=== PATIENT | male | born 1965 | race Caucasian/White ===

== ENCOUNTER 2018-08-12 18:58 | Inpatient (IN) | payer OTHER ==
[2018-08-12] MEDS ORDERED: ASPIRIN 81 MG CHEWABLE TAB PO ONE (19:20)
[2018-08-12] MEDS ORDERED: NS 1,000 ML IV ONE ×2 (19:20)
--- NOTE | 2018-08-12 19:20 | EDPHY ---
H & P Time Seen by Provider: 08/12/18 19:12 HPI/ROS: CHIEF COMPLAINT: Abnormal EKG HISTORY OF PRESENT ILLNESS: The patient is a 52-year-old male who went to the clinic today to be evaluated for right ear pain and insomnia. During the course of his workup he was noted to be minimally tachycardic and and EKG performed. This showed atrial fibrillation. Patient was sent to the emergency department for further evaluation. Patient has had no chest pain or shortness of breath. No palpitations. He has had increased fatigue recently. No recent illness. No fevers or chills. No cough. REVIEW OF SYSTEMS: 10 systems were reveiwed and are negative with the exception of the elements mentioned in the history of present illness. Past Medical/Surgical History: Denies Past surgical history: Denies Family history: Patient's mother had a history of CVA as well as DVT Social history: Patient does not smoke Smoking Status: Never smoked Physical Exam: 36.8, 135/96, 112, 19, 95% on room air GENERAL: Well-appearing, in no acute distress, alert. HEENT: Eyes normal to inspection, normal pharynx, no signs of dehydration. NECK: Normal, supple. RESPIRATORY: Clear to auscultation bilaterally, no rales, rhonchi or wheezing. CVS: Irregularly irregular tachycardia, no rubs, murmurs, or gallops. ABDOMEN: Soft, nontender, nondistended, no organomegaly. BACK: Normal to inspection, no CVA tenderness. SKIN: Normal color, no rash, warm, dry. No pallor. EXTREMITIES: No pedal edema, no calf tenderness, no Homans sign or cords, no joint swelling. NEURO/PSYCH: Alert and oriented, normal mood and affect, normal motor sensory exam. No obvious cranial nerve deficit. Constitutional: Initial Vital Signs Temperature (C) 36.8 C 08/12/18 19:07 Heart Rate 112 H 08/12/18 19:07 Respiratory Rate 19 08/12/18 19:07 Blood Pressure 135/96 H 08/12/18 19:07 O2 Sat (%) 95 08/12/18 19:07 O2 Delivery Mode Room Air Allergies/Adverse Reactions: No Known Allergies Allergy (Unverified 08/12/18 19:08) Medical Decision Making - Diagnostics Imaging Results: Imaging Impressions Chest X-Ray 08/12/18 19:20 Impression: No acute findings in the chest. ED Course/Re-evaluation: In the emergency department I discussed possible etiologies with the patient. I answered all his questions. IV was placed. Laboratory studies were obtained. Patient was given normal saline 1 L IV for hydration. EKG shows atrial fibrillation at a rate of 144, normal axis, normal intervals]. There are no ST or T-wave abnormalities. This EKG is abnormal as interpreted by me with atrial fibrillation with a rapid ventricular response Patient's CBC and chemistry unremarkable. Troponin is negative. TSH is normal. D-dimer is negative. The patient continued to have tachycardia after receiving normal saline bolus. Patient was given diltiazem 15 mg IV bolus. He was placed on a diltiazem drip. The patient was given Lovenox 100 mg subcu. Discussed case with the hospitalist service. Dr. France will admit. I discussed the plan with the patient. I answered all his questions. Differential Diagnosis: My differential includes but is not limited to atrial fibrillation, atrial flutter, ACS, acute [place], thyroid disease, electrolyte abnormality, sugar abnormality, pulmonary embolus Critical Care Time: Patient required 35 min critical care time. This was exclusive of any unbundled procedure. This was due the patient's tachycardia, atrial fibrillation, for recheck, consultation with the hospitalist service, and a diltiazem drip. - Data Points Laboratory Results: Laboratory Results 08/12/18 19:15 08/12/18 19:15 08/12/18 08/12/18 08/12/18 19:19 19:15 19:15 WBC RBC Hgb Hct MCV MCH MCHC RDW Plt Count MPV Neut % (Auto) Lymph % (Auto) [place] % (Auto) Eos % (Auto) Baso % (Auto) Nucleat RBC Rel Count Absolute Neuts (auto) Absolute Lymphs (auto) Absolute Monos (auto) Absolute Eos (auto) Absolute Basos (auto) Absolute Nucleated RBC Immature Gran % Immature Gran # D-Dimer < 0.27 ug/mLFEU ug/mLFEU (0.00-0.50) Sodium 140 mEq/L mEq/L (135-145) Potassium 4.5 mEq/L mEq/L (3.5-5.2) Chloride 106 mEq/L mEq/L (97-110) Carbon Dioxide 21 mEq/l L mEq/l (22-31) Anion Gap 13 mEq/L mEq/L (6-14) BUN 21 mg/dL mg/dL (7-23) Creatinine 1.0 mg/dL mg/dL (0.7-1.3) Estimated GFR > 60 Glucose 98 mg/dL mg/dL (70-100) Calcium 9.7 mg/dL mg/dL (8.5-10.4) POC Troponin I 0.00 ng/mL ng/mL (0.00-0.08) TSH 2.900 uIU/mL uIU/mL (0.465-4.680) 08/12/18 19:15 WBC 11.54 10^3/uL H 10^3/uL (3.80-9.50) RBC 6.78 10^6/uL H 10^6/uL (4.40-6.38) Hgb 19.4 g/dL H g/dL (13.7-17.5) Hct 56.1 % H % (40.0-51.0) MCV 82.7 fL fL (81.5-99.8) MCH 28.6 pg pg (27.9-34.1) MCHC 34.6 g/dL g/dL (32.4-36.7) RDW 13.3 % % (11.5-15.2) Plt Count 260 10^3/uL 10^3/uL (150-400) MPV 11.3 fL fL (8.7-11.7) Neut % (Auto) 62.2 % % (39.3-74.2) Lymph % (Auto) 28.7 % % (15.0-45.0) [place] % (Auto) 7.7 % % (4.5-13.0) Eos % (Auto) 0.6 % % (0.6-7.6) Baso % (Auto) 0.6 % % (0.3-1.7) Nucleat RBC Rel Count 0.0 % % (0.0-0.2) Absolute Neuts (auto) 7.18 10^3/uL H 10^3/uL (1.70-6.50) Absolute Lymphs (auto) 3.31 10^3/uL H 10^3/uL (1.00-3.00) Absolute Monos (auto) 0.89 10^3/uL H 10^3/uL (0.30-0.80) Absolute Eos (auto) 0.07 10^3/uL 10^3/uL (0.03-0.40) Absolute Basos (auto) 0.07 10^3/uL 10^3/uL (0.02-0.10) Absolute Nucleated RBC 0.00 10^3/uL 10^3/uL (0-0.01) Immature Gran % 0.2 % % (0.0-1.1) Immature Gran # 0.02 10^3/uL 10^3/uL (0.00-0.10) D-Dimer Sodium Potassium Chloride Carbon Dioxide Anion Gap BUN Creatinine Estimated GFR Glucose Calcium POC Troponin I TSH Medications Given: Discontinued Medications Aspirin (Aspirin) 324 mg PO EDNOW ONE Stop: 08/12/18 19:21 Last Admin: 08/12/18 19:23 Dose: 324 mg Sodium Chloride (Ns) 1,000 mls @ 0 mls/hr IV ONCE ONE PRN Reason: Wide Open Stop: 08/12/18 19:21 Last Admin: 08/12/18 19:21 Dose: 1,000 mls Sodium Chloride (Ns) 1,000 mls @ 0 mls/hr IV EDNOW ONE; Wide Open PRN Reason: Protocol Stop: 08/12/18 19:21 Last Admin: 08/12/18 19:23 Dose: Not Given Point of Care Test Results: Chemistry 08/12/18 19:19 POC Troponin I 0.00 ng/mL ng/mL (0.00-0.08) Departure - Departure Clinical Impression: Atrial fibrillation Qualifiers: Atrial fibrillation type: unspecified Qualified Code(s): I48.91 - Unspecified atrial fibrillation Condition: Good Referrals: NONE *PRIMARY CARE P,. [Primary Care Provider] - As per Instructions
[2018-08-12 19:27] LABS: PLATELET COUNT 260 10^3/uL (150-400)
[2018-08-12] MEDS ORDERED: DILTIAZEM 25 MG/5 ML VIAL IVP ONE (20:13)
[2018-08-12] MEDS ORDERED: DILTIAZEM 125 MG in D5W 125 ML IV ONE (20:13)
[2018-08-12] MEDS ORDERED: ENOXAPARIN 100 MG/ML SYR SC ONE (20:14)
[2018-08-12] MEDS ORDERED: ACETAMINOPHEN 325 MG TAB PO PRN (20:17)
[2018-08-12] MEDS ORDERED: ONDANSETRON DISINTEGRATING 4 MG TAB PO PRN (20:17)
[2018-08-12] MEDS ORDERED: ONDANSETRON 4 MG/2 ML VIAL IVP PRN (20:17)
--- NOTE | 2018-08-12 20:44 | PDGENHP ---
History and Physical - Chief Complaint A fib - History of Present Illness Faheem Mcintyre is a 52 yo M with no significant PMHx who presents to [facility] for A Fib. He was seen by his PCP earlier today for insomnia when he was foud to be in A Fib w RVR. Patient reports that for the past month or so he has experienced some generalized fatigue, but not so severe that he was unable to go about his daily life. He denies any chest pain, SOB, n/v, f/c, d/c, edema, LH/dizziness. He does note that occasionally he will be awakened from sleep by his heart racing. He will drink water and go back to sleep during these episodes. History Information - Allergies/Home Medication List Allergies/Adverse Reactions: No Known Allergies Allergy (Unverified 08/12/18 19:08) Home Medications: NK [No Known Home Meds] 08/12/18 [Last Taken Unknown] I have personally reviewed and updated: family history, medical history, social history, surgical history - Past Medical History no pertinent PMH - Surgical History Reports: no pertinent surgical hx - Family History Positive for: non-pertinent - Social History Smoking Status: Never smoked Review of Systems Review of Systems: ROS: 10pt was reviewed & negative except for what was stated in HPI & below Physical Exam Physical Exam: Temp Pulse Resp BP Pulse Ox 36.8 C 112 H 19 135/96 H 95 08/12/18 19:07 08/12/18 19:07 08/12/18 19:07 08/12/18 19:07 08/12/18 19:07 Constitutional: no apparent distress Eyes: PERRL Ears, Nose, Mouth, Throat: moist mucous membranes Cardiovascular: irregularly irregular, tachycardia, No edema Respiratory: no respiratory distress Gastrointestinal: soft, non-tender abdomen Skin: warm, normal color Musculoskeletal: full muscle strength Neurologic: AAOx3 Psychiatric: interacting appropriately Lab Data & Imaging Review 08/12/18 19:15 08/12/18 19:15 WBC 11.54 10^3/uL (3.80-9.50) H 08/12/18 19:15 RBC 6.78 10^6/uL (4.40-6.38) H 08/12/18 19:15 Hgb 19.4 g/dL (13.7-17.5) H 08/12/18 19:15 Hct 56.1 % (40.0-51.0) H 08/12/18 19:15 MCV 82.7 fL (81.5-99.8) 08/12/18 19:15 MCH 28.6 pg (27.9-34.1) 08/12/18 19:15 MCHC 34.6 g/dL (32.4-36.7) 08/12/18 19:15 RDW 13.3 % (11.5-15.2) 08/12/18 19:15 Plt Count 260 10^3/uL (150-400) 08/12/18 19:15 MPV 11.3 fL (8.7-11.7) 08/12/18 19:15 Neut % (Auto) 62.2 % (39.3-74.2) 08/12/18 19:15 Lymph % (Auto) 28.7 % (15.0-45.0) 08/12/18 19:15 [place] % (Auto) 7.7 % (4.5-13.0) 08/12/18 19:15 Eos % (Auto) 0.6 % (0.6-7.6) 08/12/18 19:15 Baso % (Auto) 0.6 % (0.3-1.7) 08/12/18 19:15 Nucleat RBC Rel Count 0.0 % (0.0-0.2) 08/12/18 19:15 Absolute Neuts (auto) 7.18 10^3/uL (1.70-6.50) H 08/12/18 19:15 Absolute Lymphs (auto) 3.31 10^3/uL (1.00-3.00) H 08/12/18 19:15 Absolute Monos (auto) 0.89 10^3/uL (0.30-0.80) H 08/12/18 19:15 Absolute Eos (auto) 0.07 10^3/uL (0.03-0.40) 08/12/18 19:15 Absolute Basos (auto) 0.07 10^3/uL (0.02-0.10) 08/12/18 19:15 Absolute Nucleated RBC 0.00 10^3/uL (0-0.01) 08/12/18 19:15 Immature Gran % 0.2 % (0.0-1.1) 08/12/18 19:15 Immature Gran # 0.02 10^3/uL (0.00-0.10) 08/12/18 19:15 D-Dimer < 0.27 ug/mLFEU (0.00-0.50) 08/12/18 19:15 Sodium 140 mEq/L (135-145) 08/12/18 19:15 Potassium 4.5 mEq/L (3.5-5.2) 08/12/18 19:15 Chloride 106 mEq/L (97-110) 08/12/18 19:15 Carbon Dioxide 21 mEq/l (22-31) L 08/12/18 19:15 Anion Gap 13 mEq/L (6-14) 08/12/18 19:15 BUN 21 mg/dL (7-23) 08/12/18 19:15 Creatinine 1.0 mg/dL (0.7-1.3) 08/12/18 19:15 Estimated GFR > 60 08/12/18 19:15 Glucose 98 mg/dL (70-100) 08/12/18 19:15 Calcium 9.7 mg/dL (8.5-10.4) 08/12/18 19:15 POC Troponin I 0.00 ng/mL (0.00-0.08) 08/12/18 19:19 TSH 2.900 uIU/mL (0.465-4.680) 08/12/18 19:15 Assessment & Plan Assessment: Atrial fibrillation with RVR (Acute) - Seen by PCP today, noted to be in A Fib w RVR - No hx of A Fib, does report some vague fatigue for past month or so - HR 110-140's in ED, s/p IVP Diltiazem then initiated on Dilt gtt - Continue Diltiazem gtt overnight, may spontaneously convert - CHADsVasc2 is essentially 0, s/p Lovenox in ED, will continue ASA 81 mg for now - TSH WNL on admission Insomnia - Problem that patient presented to PCP for - Reports some nights awakening with racing heart, may be related to A Fib - Will trial Melatonin tonight FEN: Regular Code: FULL DVT PPx: Lovenox Dispo: Admit to observation
[2018-08-12] MEDS ORDERED: DILTIAZEM HCL/D5W 125 ML IV ONE (21:00)
[2018-08-12] MEDS ORDERED: DILTIAZEM HCL/D5W 125 ML IV SCH (21:30)
--- NOTE | 2018-08-12 22:15 | CPEKG ---
Test Reason : OPEN Blood Pressure : / mmHG Vent. Rate : 144 BPM Atrial Rate : 306 BPM P-R Int : 256 ms QRS Dur : 083 ms QT Int : 307 ms P-R-T Axes : 000 -08 010 degrees QTc Int : 475 ms Atrial fibrillation Borderline prolonged QT interval Confirmed by Marly Guerrero ([id number]) on 08/12/2018 10:14:46 PM Referred By: Marly Guerrero Confirmed By:Marly Guerrero
[2018-08-13] MEDS: MELATONIN 3 MG TAB PO SCH ×2 (00:50→20:27)
[2018-08-13] MEDS ORDERED: ASPIRIN EC 81 MG TAB PO SCH (09:00)
[2018-08-13] MEDS ORDERED: METOPROLOL TARTRATE 25 MG TAB PO SCH (12:45)
--- NOTE | 2018-08-13 15:36 | ECHO ---
[email or web address] [address] [address] Main: [phone] Fax: Transthoracic Echocardiogram Name: MADELYN DAWSON MR#: [id number] Study Date: 08/13/2018 Study Time: 01:34 PM Date of : 1965 Age: 52 year(s) Height: 177.8 cm (70 in.) Weight: 97.98 kg (216 lb.) BSA: 2.16 m2 Gender: Male Examination: Echo Indication: new onset afib, evaluate valves Image Quality: Adequate Contrast: Requested by: Juan Forman BP: 114 mmHg/81 mmHg Heart Rate: Rhythm: Indication: new onset afib, evaluate valves Procedure Staff Electromechanical Inspector: Alysia Guillen [facility] Reading Physician: Joaquim Singh MD Requesting Provider: Conclusions: Normal global systolic LV function. EF is 73 %. Trivial to mild mitral regurgitation. Mild tricuspid regurgitation is present. Right ventricular systolic pressure measures 31mmHg. Measurements: Chambers Valvular Assessment AV/MV Valvular Assessment TV/PV Normal Normal Normal Name Value Range Name Value Range Name Value Range Ao Yudy (MM): 2.8 cm (2.2 cm-3.7 AV Vmax: 1.03 m/s (1 m/s-1.7 TR Vmax: 2.31 mm/s ( - ) cm) m/s) TR PGmax: 21 mmHg ( - ) IVSd (2D): 0.8 cm (0.6 cm-1.1 AV maxP mmHg ( - ) syst. PAP: 31 mmHg ( - ) cm) LVOT Vmax: 0.87 m/s (0.7 m/s-1.1 PV Vmax: 1.39 m/s (0.6 m/s-0.9 LVDd (2D): 5.0 cm (4.2 cm-5.9 m/s) m/s) cm) AMANDA (Vmax): 2.9 cm2 ( - ) PV PGmax: 8 mmHg ( - ) LVDs (2D): 3.5 cm (2.1 cm-4 MV E Vmax: 0.82 m/s ( - ) cm) LVPWd (2D): 0.8 cm (0.6 cm-1 cm) LVOTd 2.1 cm 2.1 cm mm LVEF (BP): 73 % (>=55 %) Continued Measurements: Chambers Valvular Assessment AV/MV Valvular Assessment TV/PV Name Value Name Value Name Value LADs: 3.8 cm MV E' Septal: 0.13 m/s CVP (est.): 10 mmHg LADs Lon.2 cm MV E/E' Septal: 6.10 LA Area: 19.9 cm2 MV E/E' Lateral: 4.60 Patient: MADELYN DAWSON Study Date: 08/13/2018 Page 1 of 2 01:34 PM LA Volume: 47 ml LA Volume Index: 21.8 ml/m2 RA Area: 17.6 cm2 Additional Vessels Name Value Ao Ascendin.7 cm Findings: Left Ventricle: Normal size left ventricle. No LV hypertrophy. Normal global systolic LV function. EF is 73 %. No regional wall motion abnormality. Unable to assess diastolic dysfunction. Right Ventricle: Normal size right ventricle. Normal RV function. Left Atrium: The left atrium is normal in size. Right Atrium: The right atrium is borderline dilated. Mitral Valve: The mitral valve is normal in appearance and function. Trivial to mild mitral regurgitation. No mitral stenosis is present. Aortic Valve: Aortic valve is not well visualized. There is no aortic valve regurgitation. No aortic valve stenosis is present. Tricuspid Valve: The tricuspid valve is normal in appearance and function. Mild tricuspid regurgitation is present. Right ventricular systolic pressure measures 31mmHg. Borderline elevated pumonary artery pressure. Pulmonic Valve: Pulmonary valve not well visualized. Trivial pulmonic valve regurgitation. Aorta: The aorta is normal. Normal size aortic root measuring 2.8 cm. Normal size ascending aorta measuring 2.7 cm. IVC: The IVC is dilated. There is greater joaquim 50% respiratory excursion. Pericardium: No pericardial effusion. (No Signature Object) Patient: MADELYN DAWSON Study Date: 08/13/2018 Page 2 of 2 01:34 PM [id number]
--- NOTE | 2018-08-13 16:25 | HOSPPROG ---
Hospitalist Progress Note Assessment/Plan: 52yo M with no significant PMH presents from primary care clinic with tachycardia found to be in atrial flutter. 1. Atrial flutter: Appears to have variable conduction. Rates improving with cindy blockade. TTE shows borderline elevated RVSP, mild TR, mildly dilated RA. I suspect JOHAN is main risk factor. - Stopped dilt gtt this AM, started metoprolol 12.5mg - Increase metoprolol to 25mg BID this evening - Discussed with cardiology, will pursue GUILHERME guided DCCV in AM - Start apixaban 5mg BID this evening (will need for 30 days post- cardioversion, afterwards can likely switch back to ASA 81mg daily as [id number] =0) - Needs outpatient sleep study; suspect JOHAN is main risk factor 2. Insomnia - Trial melatonin at night Diet: NPO at midnight Code: full DVT PPx: therapeutic anticoagulation Dispo: Switch to inpatient for rate control, electrical cardioversion tomorrow Subjective: Off dilt gtt since this AM. Started on metoprolol, rates 90-110s while resting. Denies chest pain, palpitations, dizziness. Objective: Vital Signs Temp Pulse Resp BP Pulse Ox 36.8 C 95 16 114/81 H 95 08/13/18 12:00 08/13/18 12:00 08/13/18 12:00 08/13/18 12:00 08/13/18 12:00 08/12/18 08/13/18 08/14/18 05:59 05:59 05:59 Intake Total 1240 Balance 1240 - Physical Exam Constitutional: no apparent distress, obese Eyes: PERRL, anicteric sclera, EOMI Ears, Nose, Mouth, Throat: moist mucous membranes, hearing normal, ears appear normal, no oral mucosal ulcers Cardiovascular: no murmur, rub, or gallop, irregularly irregular, tachycardia, No edema Respiratory: no respiratory distress, no rales or rhonchi, clear to auscultation Gastrointestinal: normoactive bowel sounds, soft, non-tender abdomen, no palpable masses Genitourinary: no bladder fullness, no bladder tenderness, no renal bruits Skin: no rashes or abrasions, no fluctuance, no induration Musculoskeletal: full muscle strength, no muscle tenderness, normal joint ROM Neurologic: AAOx3, sensation intact bilaterally Psychiatric: interacting appropriately, not anxious, not encephalopathic, thought process linear ICD10 Worksheet Patient Problems: Problems Problem Status Onset Atrial fibrillation Acute
--- NOTE | 2018-08-13 17:25 | ASMTCMCOM ---
CM Note CM Note Notes: 08/13/2018 Case Management Note Discussed pt during rounds this morning. Pt admitted for afib. ECHO today. There are no therapy evals ordered at this time. There are no case management d/c needs identified d/t pt age, marital status, employment status and independence with ADL's prior to admission. Case Management d/c poc: independent with follow up as directed. Case Management available if needs change. Date Signed: 08/13/2018 05:25 PM Electronically Signed By:Nancy Goddard RN
--- NOTE | 2018-08-13 19:37 | PDMN ---
Medical Necessity Medical necessity: Change to inpt as of 08/13/18 @ 16:22, meets inpt criteria per MD order and MCG M-510, Supraventricular Arrhythmias, A-1 days. 52 y/o admitted w/afib w/RVR, upgraded to inpt for rate control (resting HR 90's-110's) /persistent A flutter w/variable conduction, adjusting beta blockers, cardiology consult- pt to have GUILHERME/CV in AM, est LOS>2MN for ongoing eval/ management of above.
[2018-08-13] MEDS: METOPROLOL TARTRATE 25 MG TAB PO SCH (20:27)
[2018-08-13] MEDS: APIXABAN 5 MG TAB PO SCH (20:27)
[2018-08-14] MEDS: METOPROLOL TARTRATE 25 MG TAB PO SCH (08:56)
[2018-08-14] MEDS: APIXABAN 5 MG TAB PO SCH ×2 (08:56→22:46)
[2018-08-14] MEDS ORDERED: NS 1,000 ML IV ONE (14:25)
[2018-08-14] MEDS ORDERED: ATROPINE SULFATE 1 MG/10 ML SYR IVP ONE (14:25)
--- NOTE | 2018-08-14 14:32 | PDCARCONS ---
Cardiology Consult Reason for Consult: Atrial fibrillation. Chief Complaint: Palpitations, fatigue. Requesting Physician: Darrell France. History of Present Illness: This is a 52-year-old male seen in consultation on the progressive care unit. He has no prior cardiac history in minimal cardiac risk factors. He presents with a month history of symptoms of fatigue. He has had a component of insomnia associated with palpitations. On arrival he was found to be in rapid atrial fibrillation. This is a new diagnosis for him. His chads Vasc score is 1. He has not had any anginal chest discomfort. He does not use alcohol. He has not been tested for sleep apnea. There is no history of stroke. Overnight he has been rate controlled. He has been started on systemic anticoagulation. History Information - Allergies/Home Medication List Allergies/Adverse Reactions: No Known Allergies Allergy (Unverified 08/12/18 19:08) Home Medications: NK [No Known Home Meds] 08/12/18 [Last Taken Unknown] I have personally reviewed and updated: family history, medical history, social history, surgical history Past Medical History: - Past Medical History Additional medical history: Obesity, insomnia. - Surgical History Reports: no pertinent surgical hx - Family History Positive for: non-pertinent - Social History Smoking Status: Never smoked Alcohol Use: None Drug Use: None (He works as a commercial print salesman. He does not exercise on a regular basis.) Age in Years: < 65 Sex: Male Congestive Heart Failure History: No Hypertension History: No Stroke/TIA/Thromboembolism History: No Vascular Disease History: No Diabetes Mellitus: No [id number] Score: 0 Physical Exam Physical Exam: Temp Pulse Resp BP Pulse Ox 36.6 C 99 20 115/79 94 08/14/18 13:02 08/14/18 13:02 08/14/18 13:02 08/14/18 13:02 08/14/18 13:02 Lab and Imaging 08/14/18 04:10 08/12/18 19:15 WBC 8.13 10^3/uL (3.80-9.50) 08/14/18 04:10 RBC 6.34 10^6/uL (4.40-6.38) 08/14/18 04:10 Hgb 17.6 g/dL (13.7-17.5) H 08/14/18 04:10 Hct 52.2 % (40.0-51.0) H 08/14/18 04:10 MCV 82.3 fL (81.5-99.8) 08/14/18 04:10 MCH 27.8 pg (27.9-34.1) L 08/14/18 04:10 MCHC 33.7 g/dL (32.4-36.7) 08/14/18 04:10 RDW 12.9 % (11.5-15.2) 08/14/18 04:10 Plt Count 247 10^3/uL (150-400) 08/14/18 04:10 MPV 11.3 fL (8.7-11.7) 08/12/18 19:15 Neut % (Auto) 62.2 % (39.3-74.2) 08/12/18 19:15 Lymph % (Auto) 28.7 % (15.0-45.0) 08/12/18 19:15 [place] % (Auto) 7.7 % (4.5-13.0) 08/12/18 19:15 Eos % (Auto) 0.6 % (0.6-7.6) 08/12/18 19:15 Baso % (Auto) 0.6 % (0.3-1.7) 08/12/18 19:15 Nucleat RBC Rel Count 0.0 % (0.0-0.2) 08/12/18 19:15 Absolute Neuts (auto) 7.18 10^3/uL (1.70-6.50) H 08/12/18 19:15 Absolute Lymphs (auto) 3.31 10^3/uL (1.00-3.00) H 08/12/18 19:15 Absolute Monos (auto) 0.89 10^3/uL (0.30-0.80) H 08/12/18 19:15 Absolute Eos (auto) 0.07 10^3/uL (0.03-0.40) 08/12/18 19:15 Absolute Basos (auto) 0.07 10^3/uL (0.02-0.10) 08/12/18 19:15 Absolute Nucleated RBC 0.00 10^3/uL (0-0.01) 08/12/18 19:15 Immature Gran % 0.2 % (0.0-1.1) 08/12/18 19:15 Immature Gran # 0.02 10^3/uL (0.00-0.10) 08/12/18 19:15 D-Dimer < 0.27 ug/mLFEU (0.00-0.50) 08/12/18 19:15 Sodium 140 mEq/L (135-145) 08/12/18 19:15 Potassium 4.5 mEq/L (3.5-5.2) 08/12/18 19:15 Chloride 106 mEq/L (97-110) 08/12/18 19:15 Carbon Dioxide 21 mEq/l (22-31) L 08/12/18 19:15 Anion Gap 13 mEq/L (6-14) 08/12/18 19:15 BUN 21 mg/dL (7-23) 08/12/18 19:15 Creatinine 1.0 mg/dL (0.7-1.3) 08/12/18 19:15 Estimated GFR > 60 08/12/18 19:15 Glucose 98 mg/dL (70-100) 08/12/18 19:15 Calcium 9.7 mg/dL (8.5-10.4) 08/12/18 19:15 POC Troponin I 0.00 ng/mL (0.00-0.08) 08/12/18 19:19 TSH 2.900 uIU/mL (0.465-4.680) 08/12/18 19:15 Visualized and Interpreted Chest x-ray results: Yes Chest X-ray Interpretation: no infiltrate Visualized and Interpreted imaging results: No Visualized and Interpreted EKG results: Yes EKG additional interpertation: Atrial fibrillation with a rapid ventricular response. Nonspecific ST and T changes. Telemetry: Atrial fibrillation with a controlled heart rate. Echocardiogram: There is a full and separately detailed report on the chart. A/P Assessment: This is a 52-year-old previously healthy male who presents with symptoms of fatigue associated with atrial fibrillation with a poorly controlled heart rate. His echocardiogram was unremarkable. He has had symptoms of insomnia and I suspect he likely has significant underlying sleep apnea. Contributing factors include obesity and inactivity. Currently he is hemodynamically stable however symptomatic in this arrhythmia. His chads Vasc score is 0. Plan: 1. He has previously been started on systemic anticoagulation in the form of apixaban 5 mg twice daily which I think is appropriate. 2. Will plan for a GUILHERME and cardioversion today. 3. As an outpatient, I would like him to continue the above-noted anticoagulation for a period of a month. At that point, as long as he is in sinus rhythm this medication can be discontinued. 4. I would like him to have an outpatient sleep study. 5. I talked to him about the importance of exercise and maintenance of an ideal body weight in treating this underlying arrhythmia. Review of Systems Review of Systems: - Review of Systems Constitutional: see HPI EENTM: no symptoms reported Respiratory: see HPI Cardiac: see HPI Gastrointestinal/Abdominal: no symptoms reported Genitourinary: no symptoms Musculoskelatal: no symptoms Skin: no symptoms Neurological: no symptoms Hematologic/Lymphatic: no symptoms reported Immunologic/allergic: no symptoms reported All Other Systems: Reviewed and Negative
--- NOTE | 2018-08-14 15:51 | PDANEPAE ---
ANE History of Present Illness a-fib with rvr ANE Past Medical History - Cardiovascular History Hx Hypertension: No Hx Arrhythmias: Yes Hx Chest Pain: No Hx Coronary Artery / Peripheral Vascular Disease: No Hx CHF / Valvular Disease: No Hx Palpitations: Yes - Pulmonary History Hx COPD: No Hx Asthma/Reactive Airway Disease: No Hx Recent Upper Respiratory Infection: No Hx Oxygen in Use at Home: No Hx Sleep Apnea: No - Endocrine History Hx Diabetes: No Hypothyroid: No Hyperthyroid: No Obesity: mild - Renal History Hx Renal Disorders: No - Liver History Hx Hepatic Disorders: No - Neurological & Psychiatric Hx Hx Neurological and Psychiatric Disorders: No ANE Review of Systems Review of systems is: negative Review of Systems: - Exercise capacity Exercise capacity: >=4 METS ANE Patient History - Allergies Allergies/Adverse Reactions: No Known Allergies Allergy (Unverified 08/12/18 19:08) - Home Medications Home Medications: NK [No Known Home Meds] 08/12/18 [Last Taken Unknown] - NPO status NPO Status: no food or drink >8 hours - Anes Hx Anes Hx: no prior problems - Smoking Hx Smoking Status: Never smoked - Alcohol Use Alcohol Use: None ANE Labs/Vital Signs - Labs Result Diagrams: 08/14/18 04:10 08/12/18 19:15 - Vital Signs Vital Signs: reviewed preoperatively; see RN documention for details Blood Pressure: 125/90 Heart Rate: 110 Respiratory Rate: 14 O2 Sat (%): 95 Height: 177.8 cm Weight: 98.4 kg ANE Physical Exam - Airway Neck exam: FROM Mallampati Score: Class 2 Mouth exam: normal dental/mouth exam - Pulmonary Pulmonary: no respiratory distress - Cardiovascular Cardiovascular: regular rate and rhythym - ASA Status ASA Status: II ANE Anesthesia Plan Anesthesia Plan: GA with mask
[2018-08-14] MEDS ORDERED: PROPOFOL 200 MG/20 ML VIAL ONE ×2 (15:56)
[2018-08-14] MEDS ORDERED: NALOXONE HCL 0.4 MG/ML INJ IVP PRN (16:22)
--- NOTE | 2018-08-14 16:23 | POSTANESTH ---
Post Anesthetic Evaluation Cardiovascular Status: Normal, Stable Respiratory Status: Normal, Stable Level of Consciousness/Mental Status: Can Participate in Eval Pain Control: Adequate, Prn Tx Ordered Nausea/Vomiting Control: Adequate, Prn Tx Ordered Complications Possibly Related to Anesthesia: None Noted
--- NOTE | 2018-08-14 16:36 | PDTEE1 ---
GUILHERME Cardioversion Procedure Procedure: electrical cardioversion Indications: atrial fibrillation Consent: signed and in chart Anticoagulation: eliquis Procedural Details: Pads were placed in anterior-posterior position. GUILHERME probe was advanced and standard images obtained. There is no evidence of left atrial or left atrial appendage thrombus. Synchronized cardioversion attempt #1: 200J Synchronized cardioversion attempt #2: 200J Results: normal sinus rhythm Conclusion Comment: Normal sinus rhythm was achieved for about 1 min. After that the patient reverted to atrial fibrillation. Patient Problems: Problems Problem Status Onset Atrial fibrillation Acute
--- NOTE | 2018-08-14 18:03 | HOSPPROG ---
Hospitalist Progress Note Assessment/Plan: 52yo M with no significant PMH presents from primary care clinic with tachycardia found to be in atrial flutter. 1. Atrial flutter/fibrillation: TTE shows borderline elevated RVSP, mild TR, mildly dilated RA. I suspect JOHAN is main risk factor. - rates initially better but increasing throughout day - s/p electrical cardioversion this PM but now back in afib - plan for lexiscan stress test in AM - increased lopressor to 50 BID, started propafenone 150 q8h - continue apixaban 5 BID (will need for 30 days post-cardioversion, afterwards can likely switch back to ASA 81mg daily as [id number]) - Needs outpatient sleep study; suspect JOHAN is main risk factor 2. Insomnia - Trial melatonin at night 3. Polycythemia: Suspect hemoconcentrated vs related to chronic hypoxia. Slightly improved - Recheck in AM Diet: cardiac diet, no caffeine for stress test Code: full DVT PPx: therapeutic anticoagulation Dispo: Remain inpatient for ongoing rate control, stress test in AM Subjective: Underwent GUILHERME guided cardioversion this PM. Initially converted to sinus but went back into afib after about a minute. Currently symptom free. Objective: Vital Signs Temp Pulse Resp BP Pulse Ox 36.6 C 126 H 17 104/75 94 08/14/18 17:43 08/14/18 17:43 08/14/18 17:43 08/14/18 17:43 08/14/18 17:43 Laboratory Results 08/14/18 04:10 08/13/18 08/14/18 08/15/18 05:59 05:59 05:59 Intake Total 1200 500 Balance 1200 500 - Physical Exam Constitutional: no apparent distress, appears nourished, not in pain Eyes: PERRL, anicteric sclera, EOMI Ears, Nose, Mouth, Throat: moist mucous membranes, hearing normal, ears appear normal, no oral mucosal ulcers Cardiovascular: no murmur, rub, or gallop, irregularly irregular, No JVD, No edema Respiratory: no respiratory distress, no rales or rhonchi, clear to auscultation Gastrointestinal: normoactive bowel sounds, soft, non-tender abdomen, no palpable masses Genitourinary: no bladder fullness, no bladder tenderness, no renal bruits Skin: no rashes or abrasions, no fluctuance, no induration Musculoskeletal: full muscle strength, no muscle tenderness, normal joint ROM Neurologic: AAOx3, sensation intact bilaterally Psychiatric: interacting appropriately, not anxious, not encephalopathic, thought process linear ICD10 Worksheet Patient Problems: Problems Problem Status Onset Atrial fibrillation Acute
[2018-08-14] MEDS: PROPAFENONE HCL 150 MG TAB PO SCH (22:45)
[2018-08-14] MEDS: METOPROLOL TARTRATE 50 MG TAB PO SCH (22:45)
[2018-08-14] MEDS: MELATONIN 3 MG TAB PO SCH (22:46)
[2018-08-15] MEDS: PROPAFENONE HCL 150 MG TAB PO SCH ×2 (05:46→15:19)
[2018-08-15] MEDS ORDERED: REGADENOSON 0.4 MG/5 ML SYR IVP ONE (09:12)
--- NOTE | 2018-08-15 09:49 | SOAPPROG ---
ERON Progress Note Assessment/Plan: Assessment: This is a 52 year old male previously healthy with his 1st presentation with atrial fibrillation associated with symptoms of fatigue and palpitations. Based on his workup thus far, he has a structurally normal heart. He has truly "lone"atrial fibrillation. Unfortunately, he failed attempts at cardioversion yesterday. Risk factors for the development of atrial fibrillation include obesity and what is likely undiagnosed obstructive sleep apnea. On his current medications his heart rates are nicely controlled and he remains on systemic anticoagulation at the present time given his recent attempted cardioversion in plans for additional attempts at cardioversion here in the near future. Plan: 1. Given the use of a class 1C antiarrhythmic I would like him to have a Lexiscan myocardial perfusion imaging study. 2. Will plan to continue his current medications as prescribed. 3. I think that he can be discharged home later today on his current medications. As an outpatient I would like him to have a sleep evaluation. 4. He and I discussed the need for increased activity and weight loss as part of treating his underlying arrhythmias. 5. I will plan to see him back in the office next week. 08/15/18 09:47 Subjective: Yesterday he underwent a GUILHERME and cardioversion. He maintained sinus rhythm for about 1 min before lapsing back into atrial fibrillation. Following that procedure, his beta-amalia dose was up titrated he was started on propafenone. He has done well overnight. Heart rates in atrial fibrillation are nicely controlled today. Currently he is asymptomatic. Objective: Vital Signs Temp Pulse Resp BP Pulse Ox 36.5 C 80 19 98/67 L 95 08/15/18 07:18 08/15/18 07:18 08/15/18 07:18 08/15/18 07:18 08/15/18 07:18 Laboratory Results 08/14/18 04:10 08/14/18 08/15/18 08/16/18 05:59 05:59 05:59 Intake Total 1200 700 Balance 1200 700 Physical Exam - Physical Exam General Appearance: WD/WN, no apparent distress Neck: non-tender, full range of motion Respiratory: chest non-tender, lungs clear Cardiac/Chest: normal peripheral pulses, irregularly irregular Peripheral Pulses: 2+: carotid (R), carotid (L) Abdomen: non-tender, soft Male Genitalia: deferred Rectal: deferred ICD10 Worksheet Patient Problems: Problems Problem Status Onset Atrial fibrillation Acute
[2018-08-15] MEDS: METOPROLOL TARTRATE 50 MG TAB PO SCH (10:16)
[2018-08-15] MEDS: APIXABAN 5 MG TAB PO SCH (10:20)
--- NOTE | 2018-08-15 12:01 | CPR ---
[f rep st] NONINVASIVE CARDIAC PROCEDURE REPORT DATE OF PROCEDURE: 08/15/2018 PROCEDURE: Lexiscan nuclear stress test. INDICATION: The patient presented in atrial fibrillation, was started on Rythmol. The test was orde red to rule out coronary artery disease in the setting of antiarrhythmic therapy. PROCEDURE IN DETAIL: Consent was obtained and the patient was placed on continuous telemetry. His r esting EKG reveals atrial fibrillation with more organized rhythms, likely secondary to Rythmol. He has nonspecific ST-T wave changes. The patient was infused with Lexiscan and complained of flushing in the head. He remained in atrial fibrillation throughout the study. He did become tachycardic wit h injection with his heart rate increasing to 128. His blood pressure remained stable. He was given caffeine in the recovery phase with improvement in his symptoms. There were no significant ST-T wav e changes with the infusion. PLAN: Await nuclear images. /[id number]/MODL
[2018-08-15 15:22] VITALS: BP 118/88
--- NOTE | 2018-08-15 15:38 | ASMTCMCOM ---
CM Note CM Note Notes: 08/15/2018 Case Management Note Discussed pt during rounds today. Pt had lexascan myocardial perfusion imaging study planned. Case Management d/c poc: remains independent with follow up as directed. Case Management available if needs change. Date Signed: 08/15/2018 03:25 PM Electronically Signed By:Nancy Goddard RN
--- NOTE | 2018-08-15 17:01 | PDDCSUM ---
Discharge Summary Discharge Summary: HPI/HOSPITAL COURSE: 52yo M with no significant PMH presents from primary care clinic with tachycardia found to be in atrial flutter/fib. He had cardioversion on 08/14 which was successful for about a minute. He had nuclear stress testing which did not show CAD or ischemia. Plan at this time is to cont meds per below and f/ u with Cards next week. DDX: 1. Atrial flutter/fibrillation: TTE shows borderline elevated RVSP, mild TR, mildly dilated RA. I suspect JOHAN is main risk factor. - s/p electrical cardioversion, not successful - cont lopressor 50 BID, cont propafenone 150 q8h - continue apixaban 5 BID (will need for 30 days post-cardioversion, afterwards can likely switch back to ASA 81mg daily as [id number]). This will need to be followed up with Cardiology - Needs outpatient sleep study; suspect JOHAN is main risk factor. He will f/u with his PCP 2. Insomnia 3. Polycythemia: Suspect hemoconcentrated vs related to chronic hypoxia. Slightly improved Exam: NAD AAOX3 IRR/IRR CTAB S/NT/ND MEDS: SEE MED REC TOTAL TIME SPENT ON D/C IS 35 MINS
--- NOTE | 2018-08-15 17:21 | ASDISCHSUM ---
Discharge Information Plan Status:Home with No Needs Medically Cleared to Leave:08/14/2018 Discharge Date:08/14/2018 CM D/C Disposition:Home, Routine, Self-Care ADT D/C Disposition:Home, Routine, Self-Care Projected Discharge Date:08/14/2018 Transportation at D/C:Family Discharge Delay Reason: Follow-Up Date:08/14/2018 Discharge Slot: Final Diagnosis: Placement Information Patient Contact Information Contact Name:MELODY Relationship: Address:[address] Phone: City:[place] Alternate Phone: State/Zip Code:[place] [address] Email: Financial Information Financial Class:HMO and PPO Plans Primary Plan Desc:[facility] Primary Plan Number:[id number] Secondary Plan Desc: Secondary Plan Number: Assessment Information [employer] Length of stay for Answers: 2 days current admission Acuity / Level of Answers: Yes Care: Did the patient have an inpatient admission? Comorbidities - select Answers: Other Notes: AFib all that apply # of Emergency department Answers: 1-2 visits in the last 6 months Score: 7 Date Signed: 08/15/2018 05:19 PM Electronically Signed By:Nancy Goddard RN [facility] CM Progress Note CM Note CM Note Notes: 08/13/2018 Case Management Note Discussed pt during rounds this morning. Pt admitted for afib. ECHO today. There are no therapy evals ordered at this time. There are no case management d/c needs identified d/t pt age, marital status, employment status and independence with ADL's prior to admission. Case Management d/c poc: independent with follow up as directed. Case Management available if needs change. Date Signed: 08/13/2018 05:25 PM Electronically Signed By:Nancy Goddard RN [facility] Progress Note CM Note CM Note Notes: 08/15/2018 Case Management Note Discussed pt during rounds today. Pt had lexascan myocardial perfusion imaging study planned. Case Management d/c poc: remains independent with follow up as directed. Case Management available if needs change. Date Signed: 08/15/2018 03:25 PM Electronically Signed By:Nancy Goddard RN Case Management Discharge Plan Note Case Management Discharge Discharge Order Complete? Answers: Yes Patient to Obtain Answers: Independently Medications Transportation Arranged Answers: Family/Friends Discharge Comments Notes: 08/15/2018 Case Management Note Pt discharged independent with follow up as directed. Date Signed: 08/15/2018 05:20 PM Electronically Signed By:Nancy Goddard RN Intervention Information
--- NOTE | 2018-08-18 21:54 | CPEKG ---
Test Reason : OPEN Blood Pressure : / mmHG Vent. Rate : 108 BPM Atrial Rate : 238 BPM P-R Int : 155 ms QRS Dur : 091 ms QT Int : 327 ms P-R-T Axes : 020 -16 030 degrees QTc Int : 439 ms Atrial fibrillation Borderline left axis deviation Confirmed by Pankaj Ryder ([id number]) on 08/18/2018 9:53:48 PM Referred By: Darrell France Confirmed By:Pankaj Ryder
== END 2018-08-15 18:11 | disposition home or self-care (01) | DRG 310 ==
LOC: F2W 22:00 → OBSVTOIN 08-13 16:22
PROVIDERS: ADMIT Internal Medicine; ATTEND Internal Medicine
DX: I48.91 Unspecified atrial fibrillation (principal); I48.92 Unspecified atrial flutter; E86.9 Volume depletion, unspecified; G47.00 Insomnia, unspecified; D75.1 Secondary polycythemia; E66.9 Obesity, unspecified
CPT/HCPCS: 84484-ER; 96365; A9500; G0378; J0461; J1650; J2704; J2785

== ENCOUNTER 2018-10-23 10:47 | Observation (INO) | payer OTHER ==
[2018-10-23] MEDS ORDERED: NS 1,000 ML IV ONE (10:53)
[2018-10-23 11:29] LABS: PLATELET COUNT 243 10^3/uL (150-400)
[2018-10-23 11:39] LABS: INR 1.12 (0.83-1.16)
[2018-10-23] MEDS ORDERED: ROCURONIUM 100 MG/10 ML VIAL ONE (12:00)
[2018-10-23] MEDS ORDERED: PROPOFOL 200 MG/20 ML VIAL ONE (12:00)
[2018-10-23] MEDS ORDERED: DEXAMETHASONE 4 MG/ML VIAL ONE (12:00)
[2018-10-23] MEDS ORDERED: ONDANSETRON 4 MG/2 ML VIAL ONE (12:00)
[2018-10-23] MEDS ORDERED: ROCURONIUM 50 MG/5 ML VIAL ONE ×3 (12:00→17:25)
[2018-10-23] MEDS ORDERED: HEPARIN 10,000 UNIT/10 ML MDV (1,000 UNIT/ML) ONE ×2 (13:37→13:38)
[2018-10-23] MEDS ORDERED: LIDOCAINE 1% 300 MG/30 ML SDV ONE (13:37)
[2018-10-23] MEDS ORDERED: BUPIVACAINE 0.5% 30 ML SDV ONE (13:37)
[2018-10-23] MEDS ORDERED: HEPARIN/DEXTROSE 25,000 UNIT/500 ML BAG ONE (13:38)
--- NOTE | 2018-10-23 14:25 | PDANEPAE ---
ANE Past Medical History - Cardiovascular History Hx Hypertension: No Hx Arrhythmias: Yes Hx Chest Pain: No Hx Coronary Artery / Peripheral Vascular Disease: No Hx CHF / Valvular Disease: No Hx Palpitations: Yes - Pulmonary History Hx COPD: No Hx Asthma/Reactive Airway Disease: No Hx Recent Upper Respiratory Infection: No Hx Oxygen in Use at Home: No Hx Sleep Apnea: No - Endocrine History Hx Diabetes: No - Renal History Hx Renal Disorders: No - Liver History Hx Hepatic Disorders: No - Neurological & Psychiatric Hx Hx Neurological and Psychiatric Disorders: No ANE Review of Systems Review of Systems: ANE Patient History - Allergies Allergies/Adverse Reactions: No Known Allergies Allergy (Verified 10/16/18 10:47) - Home Medications Home Medications: Propafenone HCl [Rythmol 150mg (*)] 150 mg PO BID 10/16/18 [Last Taken 10/20/18] - Smoking Hx Smoking Status: Former smoker ANE Labs/Vital Signs - Labs Result Diagrams: 10/23/18 11:20 10/23/18 11:20 - Vital Signs Height: 177.8 cm Weight: 95.254 kg ANE Physical Exam - Airway Neck exam: FROM Mallampati Score: Class 1 Mouth exam: normal dental/mouth exam - Pulmonary Pulmonary: no respiratory distress, no rales or rhonchi, clear to auscultation - Cardiovascular Cardiovascular: regular rate and rhythym, no murmur, rub, or gallop - ASA Status ASA Status: II ANE Anesthesia Plan Anesthesia Plan: general endotracheal anesthesia
--- NOTE | 2018-10-23 15:01 | PDGENHP ---
History & Physical Chief Complaint: paroxysmal atrial fibrillation and typical atrial flutter History of Present Illness: symptomatic pAF and typical AFL Relevant Physical Exam: A+Ox4, RR with frequent ectopy, no MRG Cardiorespiratory Assessment: AFib+flutter -> GETA/GUILHERME/catheter ablation (PVI+ CTI)
[2018-10-23] MEDS ORDERED: MIDAZOLAM 2 MG/2 ML VIAL ONE (15:09)
[2018-10-23] MEDS ORDERED: PHENYLEPHRINE HCL 100 MCG/ML SYR ONE ×2 (16:26→17:32)
[2018-10-23] MEDS ORDERED: fentaNYL 100 MCG/2 ML INJ ONE (16:37)
[2018-10-23] MEDS ORDERED: ePHEDrine SULFATE 25 MG/5 ML SYR ONE (17:32)
[2018-10-23] MEDS ORDERED: ADENOSINE 6 MG/2 ML VIAL ONE ×2 (18:07→18:37)
[2018-10-23] MEDS ORDERED: PROTAMINE SULFATE 50 MG/5 ML VIAL IVP ONE (18:42)
[2018-10-23] MEDS ORDERED: SUGAMMADEX SODIUM 200 MG/2 ML VIAL IVP ONE (18:45)
[2018-10-23] MEDS ORDERED: ACETAMINOPHEN 325 MG TAB PO PRN (19:08)
[2018-10-23] MEDS ORDERED: HYDROCODONE/APAP 5/325 TAB PO PRN (19:08)
--- NOTE | 2018-10-23 19:20 | EPPROC ---
Electrophysiology Procedure Note: Date: 10/23/2018 Glass Wool Blanket Machine Feeder: Terence Barnes MD Procedures: Comprehensive EP study and catheter ablation of atrial fibrillation -14027 Add on ablation of typical atrial flutter -62813 Intracardiac echocardiography -76666 3D electro anatomic mapping -46891 Attempted induction of arrhythmia following drug infusion -37937 Transesophageal echo - 07761 Indications: 52-year-old male with symptomatic paroxysmal atrial fibrillation, typical atrial flutter, refractory to treatment with propafenone. Techniques: Following informed consent, the patient was brought to the EP lab in a fasting nonsedated state, in sinus rhythm. General anesthesia was provided by the anesthesiology service. Preprocedure echocardiography demonstrated the absence of left atrial appendage thrombus; see full report for details. An esophageal temperature probe was inserted. And radial arterial line was inserted. Bilateral groins were prepped and draped in usual sterile fashion. Under ultrasound guidance, vascular access was obtained x3 in the right femoral vein with placement of 2 8 Danish sheaths and 1 SL 0 sheath. Weight based heparin bolus and drip were administered, targeting ACT 300-350 seconds. The SL 0 sheath was connected to continuous saline irrigation. A Sound Star intracardiac echo catheter was inserted, and advanced to right atrium. A Carto sound map was created of the CS ostium, left atrial appendage, pulmonary veins, esophagus. A [employer] transseptal needle was inserted in the SL 0 sheath, and the system was positioned at the fossa ovalis, which was crossed under ice guidance. The SL 0 sheath was positioned in the mid LA. A decapolar catheter was positioned in the coronary sinus. A PentaRay multipolar catheter was inserted in the transseptal sheath, and used to create a CARTO map of the left atrium, pulmonary veins, left atrial appendage. The PentaRay was then replaced by a Smart Touch SF ablation catheter. RF ablation was performed in a wide area circumferential fashion, encircling the left PVCs than the right PVCs and block. Ablation was also required at the left jeramie in order to achieve antral isolation. Ablation was performed at 40 w power on the posterior wall, 50 w power on the anterior wall and roof, with short duration lesions. Due to esophageal proximity, the posterior aspect of the right inferior pulmonary vein required non irrigated ablation at 30 w power with short duration lesions in order to minimize heating. After completion of the ablation lesion set, the PentaRay was reinserted in the transseptal sheath, and entrance as well as exit block was confirmed in each of the 4 pulmonary veins with activation mapping and with pacing from within each vein. Adenosine 6 mg x2 IV was given (once for each set of pulmonary veins), and entrance and exit block was reconfirmed with activation mapping and pacing from within each vein. Equipment was then withdrawn from the left atrium. The ablation catheter was used to annotated the his position on the map (HV interval was 58 milliseconds). The ablation catheter was then positioned at the caval tricuspid isthmus. RF ablation of the CTI was performed at 35 w power, during CS proximal pacing in order to monitor transisthmus conduction. During RF ablation, the transisthmus time prolonged, followed by transisthmus block as confirmed by lateral RA mapping during CS pacing (transisthmus time 140 milliseconds). Adenosine 6 mg was administered during CS proximal pacing, with no change in the transisthmus time , suggesting persistent transisthmus block. At the completion of the procedure , intracardiac echo survey showed no pericardial effusion; there was normal biventricular systolic function. All catheters were withdrawn. A temporary hemostasis suture was applied to the right groin access site, and sheaths were withdrawn. Manual pressure was held until hemostasis. The patient tolerated the procedure well. EBL: Minimal Complications: None Assessment: Successful catheter ablation of atrial fibrillation and typical atrial flutter via 4 vein PVI and CTI ablation Plan: Bedrest 6 hr postprocedure Resume Eliquis at the completion of bedrest Pantoprazole and colchicine postablation Resume home metoprolol and propafenone Groin precautions 10 days Patient Problems: Problems Problem Status Onset Atrial fibrillation Acute
[2018-10-23] MEDS: METOPROLOL TARTRATE 50 MG TAB PO SCH (19:58)
[2018-10-23] MEDS: PROPAFENONE HCL 150 MG TAB PO SCH (20:00)
[2018-10-23] MEDS: COLCHICINE 0.6 MG CAP/TAB PO SCH (21:30)
[2018-10-23] MEDS ORDERED: FUROSEMIDE 20 MG/2 ML VIAL IVP ONE (21:37)
[2018-10-23] MEDS: APIXABAN 5 MG TAB PO SCH (23:09)
[2018-10-24 05:35] LABS: PLATELET COUNT 274 10^3/uL (150-400)
[2018-10-24 05:43] LABS: CREATINE KINASE 89 IU/L (0-224)
[2018-10-24] MEDS: METOPROLOL TARTRATE 50 MG TAB PO SCH (08:55)
[2018-10-24] MEDS: PROPAFENONE HCL 150 MG TAB PO SCH (08:55)
[2018-10-24] MEDS: APIXABAN 5 MG TAB PO SCH (08:55)
[2018-10-24] MEDS: COLCHICINE 0.6 MG CAP/TAB PO SCH (08:55)
[2018-10-24 08:56] VITALS: BP 103/73
--- NOTE | 2018-10-24 08:56 | ECHO ---
[email or web address] [address] [address] Main: [phone] Echocardiography Examination Transthoracic Name: MADELYN DAWSON MR#: [id number] Study Date: 10/23/2018 Study Time: 03:08 PM Date of : 1965 Age: 52 year(s) Height: ( ) Weight: ( ) BSA: Gender: Male Examination: GUILHERME Contrast: Image Quality: Rhythm: Heart Rate: BP: / Indication: Pre EP Procedure Staff Referring Physician: Door Cutter: Siva Gutiérrez RDCS Reading Physician: Pete Barnes MD Requesting Provider: Ordering Physician: Pete Barnes MD Indication: Pre EP Conclusions Left Atrium Appendage: Normal PW-Doppler flow pattern. No thrombus is identified. Findings Left Ventricle: Normal global systolic left ventricular function. Right Ventricle: Right ventricular systolic function is normal. Left Atrium Appendage: Normal PW-Doppler flow pattern. Good color flow doppler in the left atrial appendage. No thrombus is identified. IAS: Normal appearing atrial septum. Mitral Valve: Mitral valve appears structurally normal. Trivial mitral regurgitation. There is no mitral calcification. Aortic Valve: Aortic leaflets are normal in appearance and function. No aortic valve regurgitation. The aortic valve is trileaflet. Tricuspid Valve: Tricuspid valve leaflets are normal in appearance and function. No significant tricuspid regurgitation. Pulmonic Valve: Patient: MADELYN DAWSON Study Date: 10/23/2018 Page 1 of 2 03:08 PM Pulmonic leaflets are normal in appearance and function. No pulmonic valve regurgitation is evident. Aorta: The aorta is normal. Pericardium: No pericardial effusion. Exam Details Procedure Ordered: GUILHERME (No Signature Object) Patient: MADELYN DAWSON Study Date: 10/23/2018 Page 2 of 2 03:08 PM [id number]
[2018-10-24] MEDS ORDERED: PANTOPRAZOLE SODIUM 40 MG TAB PO SCH (09:00)
--- NOTE | 2018-10-24 13:16 | CPEKG ---
Test Reason : OPEN Blood Pressure : / mmHG Vent. Rate : 129 BPM Atrial Rate : 149 BPM P-R Int : 145 ms QRS Dur : 087 ms QT Int : 355 ms P-R-T Axes : 030 -18 036 degrees QTc Int : 521 ms Sinus tachycardia Multiform ventricular premature complexes Borderline left axis deviation Borderline prolonged QT interval Confirmed by Deandre Ly ([id number]) on 10/24/2018 1:16:00 PM Referred By: Pete Barnes Confirmed By:eDandre Ly
--- NOTE | 2018-10-24 13:19 | CPEKG ---
Test Reason : OPEN Blood Pressure : / mmHG Vent. Rate : 108 BPM Atrial Rate : 108 BPM P-R Int : 156 ms QRS Dur : 087 ms QT Int : 335 ms P-R-T Axes : 049 -17 058 degrees QTc Int : 449 ms Sinus tachycardia Borderline left axis deviation Confirmed by Deandre Ly ([id number]) on 10/24/2018 1:19:02 PM Referred By: Pete Barnes Confirmed By:Deandre Ly
--- NOTE | 2018-10-24 13:21 | CPEKG ---
Test Reason : OPEN Blood Pressure : / mmHG Vent. Rate : 089 BPM Atrial Rate : 089 BPM P-R Int : 159 ms QRS Dur : 092 ms QT Int : 361 ms P-R-T Axes : 047 -09 054 degrees QTc Int : 440 ms Sinus rhythm Confirmed by Deandre Ly ([id number]) on 10/24/2018 1:21:23 PM Referred By: Pete Barnes Confirmed By:Deandre Ly
--- NOTE | 2018-10-24 15:44 | ECHO ---
[email or web address] [address] [address] Main: [phone] Echocardiography Examination Transthoracic Name: MADELYN DAWSON MR#: [id number] Study Date: 10/24/2018 Study Time: 08:20 AM Date of : 1965 Age: 52 year(s) Height: 177.8 cm (70 in.) Weight: 95.26 kg (210 lb.) BSA: 2.13 m2 Gender: Male Examination: Echo Contrast: Image Quality: Rhythm: Heart Rate: 89 bpm BP: 103 mmHg/73 mmHg Indication: Post Ablation Procedure Staff Referring Physician: Beater Worker Helper: Siva Gutiérrez RDCS Reading Physician: Markus Jeter MD Requesting Provider: Ordering Physician: Pete Barnes MD Indication: Post Ablation Measurements Chambers AV/MV Label Value Normal Value Label Value Normal Value LVOT Vmax 0.73 m/s (0.7m/s - 1.1m/s) AV PGmax 5 mmHg LVOTd 2 cm (1.9cm - 2.1cm) AV PGmean 3 mmHg LVOT VTI 17.8 cm (18cm - 22cm) AV Vmax 1.09 m/s LVDd, 2D 4.6 cm (4.2cm - 5.9cm) AMANDA (Vmax) 2.1 cm2 LVDs, 2D 3 cm (2.1cm - 4cm) AMANDA (VTI) 2.5 cm2 IVSd, 2D 0.8 cm (0.6cm - 1.1cm) MV E Vmax 0.78 m/s LVPWd, 2D 0.9 cm (0.6cm - 1cm) MV A Vmax 0.52 m/s LVEF, 2D 62 % (54% - 74%) MV E/A 1.5 LVOT PGmean 1 mmHg MV E/E' lateral 6.9 LVOT Vmean 0.5 m/s MV E/E' septal 8.1 (0.5 - 1.7) RVDd, 2D 2 cm (1.9cm - 3.8cm) MV E' septal 0.1 m/s LADs, 2D 3.6 cm (3cm - 4cm) MV E' lateral 0.11 m/s Additional Vessels MV E/E' mean 7.43 Label Value Normal Value MV E' mean 0.1 m/s AoRoot, MM 2.8 cm (2.2cm - 3.7cm) TV/PV Label Value Normal Value RA Pressure 5 mmHg RVSP 22 mmHg TR Pmax 17 mmHg Patient: MADELYN DAWSON Study Date: 10/24/2018 Page 1 of 2 08:20 AM TR Vmax 2.08 m/s PV PGmax 7 mmHg PV Vmax, Caliper 1.29 m/s (0.6m/s - 0.9m/s) Conclusions The study is done post ablation to check for complication of same. This is a normal echocardiogram without evidence of pericardial effusion or intracardiac thrombus. Findings Left Ventricle: Left ventricle is normal in size. Normal global systolic left ventricular function. Left ventricle wall thickness is normal. There are no regional wall motion abnormalities. Left ventricular diastolic function parameters are normal. IVS: The septum is intact. Right Ventricle: Normal size right ventricle. Right ventricular systolic function is normal. Left Atrium: The left atrium is normal in size. IAS: Normal appearing atrial septum. Right Atrium: The right atrium is normal in size. Mitral Valve: Normal . Trivial mitral regurgitation. No mitral valve stenosis. Aortic Valve: Aortic leaflets exhibit normal cuspal separation. No aortic valve regurgitation. There is no aortic stenosis. Tricuspid Valve: Tricuspid valve leaflets are normal in appearance and function. Trivial tricuspid regurgitation. No tricuspid valve stenosis. Right Ventricular systolic pressure is measured at 22 mmHg. Pulmonary artery pressure normal. Pulmonic Valve: Pulmonic leaflets exhibit normal cuspal separation. No pulmonic valve regurgitation is evident. There is no pulmonic valve stenosis. Aorta: The aorta is normal. The aortic root size in M-mode measures 2.8 cm. Aorta Measurements AoRoot, MM is 2.8 cm. Pulmonary Artery: The pulmonary artery morphology appears normal. IVC: The inferior vena cava is normal in size and course. Pericardium: No pericardial effusion. No pleural effusion present. Exam Details Procedure Ordered: Echo (No Signature Object) Patient: MADELYN DAWSON Study Date: 10/24/2018 Page 2 of 2 08:20 AM [id number]
--- NOTE | 2018-10-24 19:00 | GDS ---
[f rep st] DISCHARGE SUMMARY DISCHARGE DIAGNOSES: 1. Paroxysmal atrial fibrillation, atrial flutter and atrial tachycardia. 2. Status post ablation of atrial fibrillation and atrial flutter. BRIEF HISTORY: This is a 52-year-old man with a history of PAF that is controlled with Rythmol; however, he has had breakthrough episodes of atrial flutter and atrial tachycardia. HOSPITAL COURSE: Dr. Barnes performed atrial fibrillation ablation with PVI. Atrial flutter ablation was done with CTI ablation. There were no complications. The patient did well overnight without chest pain or significant groin site pain. Suture was removed from the right groin site in the morning without difficulty. Telemetry demonstrated sinus rhythm without any atrial fibrillation or flutter. Post procedure he did have a heart rate about 120 beats per minute, possibly an atrial tachycardia. This did resolve right after his first dose of metoprolol. He has been in sinus rhythm since. Testing done echocardiogram demonstrated normal LV function and no significant valve disease, and no pericardial effusion. A 12-lead EKG demonstrates normal sinus rhythm without ST or T-wave changes. LAB WORK: WBC is 11.24, hemoglobin 17.8, hematocrit 52.5, platelets 274, sodium 139, potassium 4.4, chloride 105, bicarb 22, BUN 17, creatinine 0.9, glucose 123, CK 89, troponin 2.04. PHYSICAL EXAMINATION: VITAL SIGNS: Blood pressure is 114/73, pulse is 89 respirations 22, temperature 36.6, O2 saturation is 93% on room air. GENERAL: He is alert and oriented, sitting up in a chair, in no acute no acute distress. SKIN: Groin is without hematoma or bleeding. CARDIAC: Regular rate and rhythm without murmur, rub or gallop. LUNGS: Clear to auscultation. EXTREMITIES: Warm. No discoloration. Bilateral +2 pedal pulses. DISCHARGE MEDICATIONS: He will continue with his Eliquis, Rythmol and metoprolol. He will take omeprazole 20 mg daily for 6 weeks post ablation. He will take colchicine 0.3 mg b.i.d. for 2 weeks post ablation. DISCHARGE INSTRUCTIONS: Post ablation activity restrictions were reviewed verbally with the patient and he was given written instructions on his discharge. FOLLOWUP: He has a followup with Dr. Barnes on November 12 at 11:45. ADDENDUM Terence Barnes MD - patient seen and discussed with Ms Nichols. Relevant portions of history/physical/ros/data review were personally performed by me. Uneventful observation status post catheter ablation of atrial fibrillation and typical atrial flutter. Postop care and follow-up as above. /[id number]/MODL MTDD
== END 2018-10-24 10:54 | disposition home or self-care (01) ==
LOC: FCATH 10:47 → F2N 19:08
PROVIDERS: ADMIT Internal Medicine Cardiovascular Disease; ATTEND Internal Medicine Cardiovascular Disease
PROC: 02K83ZZ Map Conduction Mechanism, Percutaneous Approach (ICD-10-PCS; principal; 2018-10-23)
PROC: 3E033KZ Introduction of Other Diagnostic Substance into Peripheral Vein, Percutaneous Approach (ICD-10-PCS; principal; 2018-10-23)
PROC: B245ZZ4 Ultrasonography of Left Heart, Transesophageal (ICD-10-PCS; principal; 2018-10-23)
PROC: B246ZZ3 Ultrasonography of Right and Left Heart, Intravascular (ICD-10-PCS; principal; 2018-10-23)
PROC: 4A023FZ Measurement of Cardiac Rhythm, Percutaneous Approach (ICD-10-PCS; principal; 2018-10-23)
PROC: 02583ZZ Destruction of Conduction Mechanism, Percutaneous Approach (ICD-10-PCS; principal; 2018-10-23)
DX: I48.92 Unspecified atrial flutter (principal); I47.1 Supraventricular tachycardia; I48.0 Paroxysmal atrial fibrillation; Z79.01 Long term (current) use of anticoagulants
CPT/HCPCS: 93005; 93306; 93312; 93623; 93655; 93656; 93662; C1893; G0378; C1730; C1732; C1759; J0153; J1100; J1644; J1940; J2250; J2370; J2405; J2704; J2720; J3010